=== PATIENT | female | born 1950 ===

== ENCOUNTER 2024-05-14 07:06 | Inpatient (IN) | payer OTHER ==
[~2024-05-14] VITALS: Ht 157.5 cm; Wt 58.1 kg
[2024-05-14] MEDS ORDERED: AMLODIPINE BESYL5 MG PO (07:25)
[2024-05-14] MEDS ORDERED: FOSAMAX70 MG PO (07:25)
[2024-05-14] MEDS ORDERED: DESOXYN5 MG PO (07:26)
[2024-05-14] MEDS ORDERED: ATORVASTATIN CA20 MG PO (07:26)
[2024-05-14 07:27] VITALS: BP 137/85
[2024-05-14 08:01] LABS: HEMATOCRIT 36.1 % (36.0-45.00); HEMOGLOBIN 12.2 g/dL (12.0-15.00); MEAN CELL VOLUME 92.2 fL (80.00-100.00); MEAN CORPUSCULAR HEMOGLOBIN 31.2 pg (27.00-32.0); MEAN CORPUSCULAR HGB CONC 33.9 g/dl (32.0-36.0); PLATELET COUNT 334 K/uL (150-450); RED BLOOD COUNT 3.92 M/uL (4.00-6.00); RED CELL DISTRIBUTION WIDTH 14.5 % (11.5-14.5)
[2024-05-14] MEDS ORDERED: TAPAZOLE5 MG PO (08:01)
[2024-05-14 08:28] LABS: INR 1.11; PARTIAL THROMBOPLASTIN TIME 23.2 SECONDS (22.0-34.0)
[2024-05-14 09:16] LABS: CALCIUM 9.6 mg/dL (8.5-10.1); CREATININE SERUM 1.13 mg/dL (0.55-1.02); GFR 46.94; POTASSIUM 4.56 mEq/L (3.5-5.1)
[2024-05-14 09:58] LABS: URINE APPEARANCE Clear; URINE BILIRRUBIN Negative (NEGATIVE); URINE BLOOD Negative; URINE COLOR Yellow; URINE GLUCOSE Negative (NEGATIVE); URINE KETONE Negative (NEGATIVE); URINE LEUKOCYTE Negative; URINE NITRATE Negative; URINE PROTEIN Negative (NEGATIVE); URINE UROBILINOGEN 0.2 E.U./dl
[2024-05-14 10:01] LABS: URINE BACTERIA 30.5 uL (0.0-1933)
[2024-05-14 10:17] LABS: URINE EPITHELIAL CELLS 0.6 uL (0.0-38.8); URINE RBC 1.1 uL (0.0-20.8); URINE WBC 1.3 uL (0.0-23.2)
[2024-05-14 10:52] LABS: RH POSITIVE
[2024-05-18] MEDS ORDERED: ENOXAPARIN SODIUM 40 MG/0.4 ML SYRINGE SUBCUTANEO ONE (07:12)
[2024-05-18] MEDS ORDERED: CEFAZOLIN SODIUM 1,000 MG VIAL ONE ×2 (07:13→16:44)
[2024-05-18] MEDS ORDERED: CHLORHEXIDINE GLUCONATE 120 ML BOTTLE TOP ONE (07:40)
[2024-05-18] MEDS ORDERED: MANNITOL 0.2 GM/ML (500ML) IV.SOLN IV ONE (11:15)
[2024-05-18] MEDS ORDERED: SUGAMMADEX SODIUM 200 MG/2 ML VIAL IV ONE (14:00)
[2024-05-18] MEDS ORDERED: DEXTROSE 5 %-0.45 % SOD CHLORD 1,000 ML IV SCH (14:08)
[2024-05-18] MEDS ORDERED: ONDANSETRON HCL 2 MG/ML VIAL IV PRN (14:15)
[2024-05-18] MEDS ORDERED: DOCUSATE SODIUM 100MG CAP PO SCH (17:00)
[2024-05-18] MEDS ORDERED: CEFAZOLIN SODIUM 1,000 MG VIAL IV SCH (17:00)
[2024-05-18] MEDS ORDERED: FAMOtidine 20 MG TABLET PO SCH (17:00)
[2024-05-18] MEDS ORDERED: SIMETHICONE 125 MG CAPSULE PO SCH (17:00)
[2024-05-18 18:00] VITALS: BP 128/74; O2SAT 97
[2024-05-18] MEDS ORDERED: MORPHINE SULFATE 2 MG/ML CARTRIDGE IV PRN (20:30)
[2024-05-19 02:14] VITALS: BP 114/56; O2SAT 93
[2024-05-19 08:00] VITALS: BP 116/79; O2SAT 90
[2024-05-19 08:05] LABS: HEMATOCRIT 26.7 % (36.0-45.00); MEAN CELL VOLUME 92.2 fL (80.00-100.00); MEAN CORPUSCULAR HEMOGLOBIN 32.1 pg (27.00-32.0); MEAN CORPUSCULAR HGB CONC 34.8 g/dl (32.0-36.0); PLATELET COUNT 257 K/uL (150-450); RED BLOOD COUNT 2.89 M/uL (4.00-6.00); RED CELL DISTRIBUTION WIDTH 14.7 % (11.5-14.5)
[2024-05-19 08:33] LABS: HEMOGLOBIN 9.3 g/dL (12.0-15.00)
[2024-05-19 08:39] LABS: CALCIUM 8.1 mg/dL (8.5-10.1); CREATININE SERUM 1.59 mg/dL (0.55-1.02); GFR 31.65; POTASSIUM 4.95 mEq/L (3.5-5.1)
[2024-05-19] MEDS ORDERED: AMLODIPINE BESYLATE 5 MG TABLET PO SCH (09:00)
[2024-05-19] MEDS ORDERED: MORPHINE SULFATE 2 MG/ML CARTRIDGE IV PRN (09:45)
[2024-05-19] MEDS ORDERED: MEPERIDINE HCL/PF 25 MG/ML VIAL IV PRN (11:00)
[2024-05-19 11:13] LABS: ABG PH 7.452 (7.35-7.45); ABG pCO2 31.9 mmHg (35-45); BASE EXCESS -1.2 mmol/l; BICARBONATE 21.8 mmol/l (23-25); SaO2 88.6 %; Tco2 22.8 mmol/l
[2024-05-19 11:23] LABS: ABG PO2 52.8 mmHg (80-100); allen test SATISFACTORY; o2 21 %; puncture site RADIAL LEFT
[2024-05-19 12:00] VITALS: BP 123/78; O2SAT 92
[2024-05-19 16:00] VITALS: BP 126/80; O2SAT 95
[2024-05-19] MEDS ORDERED: ACETAMINOPHEN WITH CODEINE 1 UDTAB TABLET PO PRN (17:00)
[2024-05-19] MEDS ORDERED: CYCLOBENZAPRINE HCL 5 MG TABLET PO SCH (17:00)
[2024-05-19 18:00] LABS: HEMATOCRIT 26.8 % (36.0-45.00); MEAN CELL VOLUME 93.5 fL (80.00-100.00); MEAN CORPUSCULAR HEMOGLOBIN 31.1 pg (27.00-32.0); MEAN CORPUSCULAR HGB CONC 33.3 g/dl (32.0-36.0); PLATELET COUNT 243 K/uL (150-450); RED BLOOD COUNT 2.86 M/uL (4.00-6.00); RED CELL DISTRIBUTION WIDTH 14.2 % (11.5-14.5)
[2024-05-19 18:01] LABS: HEMOGLOBIN 8.9 g/dL (12.0-15.00)
[2024-05-19 18:30] LABS: CALCIUM 7.8 mg/dL (8.5-10.1); CREATININE SERUM 1.61 mg/dL (0.55-1.02); GFR 31.2; POTASSIUM 3.87 mEq/L (3.5-5.1)
[2024-05-20] VITALS: BP 118/70; O2SAT 96
[2024-05-20 07:44] LABS: MEAN CELL VOLUME 92.8 fL (80.00-100.00); MEAN CORPUSCULAR HGB CONC 33.4 g/dl (32.0-36.0); PLATELET COUNT 237 K/uL (150-450); RED CELL DISTRIBUTION WIDTH 14.6 % (11.5-14.5)
[2024-05-20 08:00] VITALS: BP 144/80; O2SAT 94
[2024-05-20 08:03] LABS: HEMOGLOBIN 8.7 g/dL (12.0-15.00)
[2024-05-20 08:09] LABS: CALCIUM 7.9 mg/dL (8.5-10.1); CREATININE SERUM 1.6 mg/dL (0.55-1.02); GFR 31.42; POTASSIUM 4.24 mEq/L (3.5-5.1)
[2024-05-20] MEDS ORDERED: FUROsemide 20 MG/2 ML VIAL IV SCH (09:00)
[2024-05-20] MEDS ORDERED: SOD FERRIC GLUC COMPLX/SUCROSE 62.5 MG in 0.9 % SODIUM CHLORIDE 50 ML IV SCH (09:00)
[2024-05-20] MEDS ORDERED: ENOXAPARIN SODIUM 30 MG/0.3 ML SYRINGE SUBCUTANEO SCH (09:00)
[2024-05-20 16:00] VITALS: BP 114/77; O2SAT 92
[2024-05-20] MEDS ORDERED: SODIUM CHLORIDE 0.45 % 1,000 ML IV SCH (16:27)
[2024-05-20 18:46] VITALS: O2SAT 95
[2024-05-20 22:13] LABS: HEMATOCRIT 29.2 % (36.0-45.00); HEMOGLOBIN 9.8 g/dL (12.0-15.00); MEAN CELL VOLUME 90.9 fL (80.00-100.00); MEAN CORPUSCULAR HEMOGLOBIN 30.6 pg (27.00-32.0); MEAN CORPUSCULAR HGB CONC 33.7 g/dl (32.0-36.0); PLATELET COUNT 215 K/uL (150-450); RED BLOOD COUNT 3.22 M/uL (4.00-6.00); RED CELL DISTRIBUTION WIDTH 14.2 % (11.5-14.5)
[2024-05-21] VITALS: BP 111/74; O2SAT 95
[2024-05-21 06:41] LABS: HEMATOCRIT 27.9 % (36.0-45.00); HEMOGLOBIN 9.7 g/dL (12.0-15.00); MEAN CELL VOLUME 91.3 fL (80.00-100.00); MEAN CORPUSCULAR HEMOGLOBIN 31.7 pg (27.00-32.0); MEAN CORPUSCULAR HGB CONC 34.7 g/dl (32.0-36.0); PLATELET COUNT 201 K/uL (150-450); RED BLOOD COUNT 3.05 M/uL (4.00-6.00); RED CELL DISTRIBUTION WIDTH 14.5 % (11.5-14.5)
[2024-05-21 07:11] LABS: CALCIUM 8.2 mg/dL (8.5-10.1); CREATININE SERUM 1.66 mg/dL (0.55-1.02); GFR 30.12; POTASSIUM 4.02 mEq/L (3.5-5.1)
[2024-05-21 09:00] VITALS: BP 133/83; BP 140/82; O2SAT 98; O2SAT 99
[2024-05-21 16:03] VITALS: BP 126/75; O2SAT 95
[2024-05-22] VITALS: BP 101/66; O2SAT 95
[2024-05-22 08:00] VITALS: BP 135/85; O2SAT 96
[2024-05-22 08:34] LABS: HEMATOCRIT 26.7 % (36.0-45.00); HEMOGLOBIN 9.3 g/dL (12.0-15.00); MEAN CELL VOLUME 90.1 fL (80.00-100.00); MEAN CORPUSCULAR HEMOGLOBIN 31.3 pg (27.00-32.0); MEAN CORPUSCULAR HGB CONC 34.7 g/dl (32.0-36.0); PLATELET COUNT 225 K/uL (150-450); RED BLOOD COUNT 2.96 M/uL (4.00-6.00); RED CELL DISTRIBUTION WIDTH 14.9 % (11.5-14.5)
== END 2024-05-22 13:23 | disposition home or self-care (01) | DRG 657 ==
LOC: SURH 05-18 05:40 → O/R 05-18 05:40 → SURH 05-18 07:00
PROVIDERS: Internal Medicine; ADMIT Urology; ATTEND Urology
PROC: 0TT10ZZ Resection of Left Kidney, Open Approach (ICD-10-PCS; principal; 2024-05-18 07:00)
PROC: BB24YZZ Computerized Tomography (CT Scan) of Bilateral Lungs using Other Contrast (ICD-10-PCS; 2024-05-19)
PROC: BW21YZZ Computerized Tomography (CT Scan) of Abdomen and Pelvis using Other Contrast (ICD-10-PCS; 2024-05-19)
PROC: BW21ZZZ Computerized Tomography (CT Scan) of Abdomen and Pelvis (ICD-10-PCS; 2024-05-19)
PROC: 30233N1 Transfusion of Nonautologous Red Blood Cells into Peripheral Vein, Percutaneous Approach (ICD-10-PCS; 2024-05-20)
DX: C64.2 Malignant neoplasm of left kidney, except renal pelvis (principal); J90 Pleural effusion, not elsewhere classified; J98.11 Atelectasis; R59.0 Localized enlarged lymph nodes; R09.02 Hypoxemia; D64.89 Other specified anemias; I12.9 Hypertensive chronic kidney disease with stage 1 through stage 4 chronic kidney disease, or unspecified chronic kidney disease; N18.9 Chronic kidney disease, unspecified; Z87.891 Personal history of nicotine dependence